=== PATIENT | female | born 1965 | race Caucasian/White ===

== ENCOUNTER 2019-08-20 12:47 | Outpatient (CLI) | payer BC, SELFPAY ==
--- NOTE | ~2019-08-20 | US_ITS ---
EXAMINATION: US pelvic complete w TV DATE: 08/20/2019 14:05 INDICATION: Postmenopausal bleeding Comparison:No prior studies for comparison. TECHNIQUE: Multiple transabdominal and endovaginal sonographic images of the pelvis performed. FINDINGS: The uterus measures 8 x 4.8 x 3.3 cm. There is a uterine fibroid measuring 1 cm greatest di mension. Incidental note is made of calcifications in the cervix. The endometrial complex measures 5 mm. The right ovary measures 1.9 x 2.1 x 1.6 cm and the left ovary not visualized. There is a 1.6 cm righ t ovarian cyst. There is no free fluid in the pelvis. There are no abnormal masses seen on either side. IMPRESSION: 1. 1 cm uterine fibroid. 2: 1.6 cm right ovarian cyst. Reviewed, dictated and finalized at location A.
== END 2019-08-20 12:48 | disposition home or self-care (01) ==
LOC: ANHIMG 12:51
PROVIDERS: PCP Internal Medicine; Visit Provider Nurse Practitioner
DX: N95.0 Postmenopausal bleeding (principal); D25.9 Leiomyoma of uterus, unspecified; N83.201 Unspecified ovarian cyst, right side
CPT/HCPCS: 76830; 76856

== ENCOUNTER 2019-09-04 06:19 | Outpatient (CLI) | payer BC, SELFPAY ==
[2019-09-04 17:05] LABS: SARS-CoV-2 RNA PCR Negative
--- NOTE | 2019-09-07 12:43 | OP_ITS ---
DATE OF PROCEDURE: 09/07/2019 PREOPERATIVE DIAGNOSIS: Postmenopausal bleeding. POSTOPERATIVE DIAGNOSIS: Postmenopausal bleeding. PROCEDURE PERFORMED: D and C, hysteroscopy. SURGEON: Simran Hernandez M.D. ANESTHESIA: MAC and local. FINDINGS: The cervix is stenotic. The uterus sounds to 7 cm. There is a midline uterine septum noted. The tubal ostia and endometrium appeared grossly normal. ESTIMATED BLOOD LOSS: 5 cc. PATHOLOGY: Endometrial curettings. DESCRIPTION OF PROCEDURE: The patient is taken to the operating room, placed under anesthesia, prepped and draped in the usual sterile fashion. The bivalved speculum is placed in the vagina. The cervix is grasped on the anterior lip with a tenaculum and injected with 1% lidocaine. The uterus is attempted to be sounded and stenosis is noted. The Os Finders are used and the cervical os is opened. The cervix is then dilated with difficulty due to stenosis to an 8 Hegar. The diagnostic hysteroscope is then placed with the above-stated findings. The hysteroscope is removed. The medium sharp curette is used to curette the endometrium until a good uterine cry is noted in all areas. All instruments are then removed. The patient is taken to Recovery in stable condition. D I MT: [facility]
== END 2019-09-04 06:20 | disposition home or self-care (01) ==
LOC: ANHCOVIDDT 06:20
PROVIDERS: PCP Internal Medicine; Visit Provider Obstetrics & Gynecology Gynecology
DX: Z01.818 Encounter for other preprocedural examination (principal); Z11.59 Encounter for screening for other viral diseases
CPT/HCPCS: 87635; C9803; U0003

== ENCOUNTER 2019-09-07 01:24 | Day surgery (SDC) | payer BC, SELFPAY ==
[2019-09-01 11:44] VITALS: BMI 28.0
--- NOTE | 2019-09-07 07:36 | P.HP_ITS ---
History of Present Illness History of Present Illness Consent: Risks, benefits, and alternatives have been discussed and questions answered. Patient agrees to proceed with procedure. Chief complaint: Post Menopausal Bleeding Narrative: Estrella Maldonado is a 54 year old female with postmenopausal bleeding and slightly thickened endometrium. Recommend to proceed with workup via hysteroscopy and D&C. Reviwed possible pathology as well as risks of infection, bleeding, perforation, and fluid imbalance. Patient agrees to proceed. [facility] Past Medical History Medical History (Updated 09/07/19 @ 07:41 by Simran Hernandez MD) Melanoma (normal spontaneous vaginal delivery) x 2 S/p breast implant removal Surgical History Surgical History (Updated 09/07/19 @ 07:40 by Simran Hernandez MD) S/P ACL surgery S/P breast implant, saline Family History Family History (Updated 05/16/16 @ 10:27 by DOCTOR UNKNOWN) Mother Family history of migraine headaches Hypertension Family history of arthritis Sibling Family history of migraine headaches Family history of arthritis Father Hypertension Grandparent Family history of rheumatoid arthritis Family history of congestive heart failure Other Carcinoma of colon Family history of malignant neoplasm of breast Social History Social History Smoking status: Former smoker Smoking end date: 04/22/89 Alcohol intake: current Meds Home Medications and Allergies Home Medications Medication Instructions Recorded Confirmed Type diclofenac sodium 75 mg PO DAILY 09/01/19 09/01/19 History ergocalciferol (vitamin D2) 50,000 unit PO DAILY 09/01/19 09/01/19 History levothyroxine 25 mcg PO DAILY 09/01/19 09/01/19 History loratadine [Claritin] 10 mg PO DAILY 09/01/19 09/01/19 History pseudoephedrine HCl [Sudafed] 30 mg PO Q4-6H PRN 09/01/19 09/01/19 History vitamin B complex [B 1 tablet PO DAILY 09/01/19 09/01/19 History Complex-Vitamin B12] Allergies Allergy/AdvReac Type Severity Reaction Status Date / Time apple Allergy Severe Swelling Verified 09/01/19 10:56 of Lip/Tongue/Throat hazelnut Allergy Severe Swelling Verified 09/01/19 10:56 of Lip/Tongue/Throat potato Allergy Severe Swelling Verified 09/01/19 10:56 of Lip/Tongue/Throat amoxicillin Allergy Intermediate Abdominal Verified 09/01/19 10:56 Pain Exam Const: General: healthy appearing and alert Orientation/consciousness: patient oriented x3 GI: GI Palp: Yes Soft to palpation, No Tenderness to palpation present (GI) and No Palpable mass present : External Female Exam: normal external appearance Speculum Exam - Vagina: normal appearance of the vagina and normal vaginal discharge Speculum Exam - Cervix: normal appearance of the cervix Bimanual exam- vagina & uterus: uterine size normal and consistency normal Bimanual Exam- Adnexa, other: normal adnexae and No adnexal tenderness Neuro: General: patient oriented x3 Assessment and Plan Assessment and plan (1) History of postmenopausal bleeding: Code(s): Z87.42 - Personal history of other diseases of the female genital tract Status: Acute Assessment and Plan: Plan to proceed with D&C hysteroscopy
[2019-09-07 08:40] VITALS: BP 111/72; PULSE 67; RESP 20; TEMP 36.2; O2SAT 98
--- NOTE | 2019-09-07 09:02 | WPDANESEPPF ---
Anes - Initial Pre Proc Eval Procedure: Operation Date: 09/07/19 10:45 Proposed Procedures p Hysteroscopy, Dilation and Curettage - Simran Hernandez MD Date/Time: 09/07/19 09:02 Surgeon: Simran Hernandez MD Pre Op Diagnosis: Post Menopausal Bleeding Patient Data Age: 54 Gender: F Height: 5 ft 6 in Weight: 78 kg Allergies Allergy/AdvReac Type Severity Reaction Status Date / Time amoxicillin [From Augmentin] Allergy Severe Swelling Verified 09/07/19 08:51 of Lip/Tongue/Throat apple Allergy Severe Swelling Verified 09/07/19 08:50 of Lip/Tongue/Throat clavulanic acid Allergy Severe Swelling Verified 09/07/19 08:51 [From Augmentin] of Lip/Tongue/Throat hazelnut Allergy Severe Swelling Verified 09/07/19 08:50 of Lip/Tongue/Throat potato Allergy Severe Swelling Verified 09/07/19 08:50 of Lip/Tongue/Throat Home Medications Medication Instructions Recorded Confirmed Type diclofenac sodium 75 mg PO DAILY 09/01/19 09/07/19 History ergocalciferol (vitamin D2) 50,000 unit PO DAILY 09/01/19 09/07/19 History levothyroxine 25 mcg PO DAILY 09/01/19 09/07/19 History loratadine [Claritin] 10 mg PO DAILY 09/01/19 09/07/19 History pseudoephedrine HCl [Sudafed] 30 mg PO Q4-6H PRN 09/01/19 09/07/19 History vitamin B complex [B 1 tablet PO DAILY 09/01/19 09/07/19 History Complex-Vitamin B12] Patient hx anesthesia problems: none Family hx anesthesia problems: none PMFSH Past Medical History Medical History Melanoma (normal spontaneous vaginal delivery) x 2 S/p breast implant removal Surgical History Surgical History S/P ACL surgery S/P breast implant, saline Family History Family History Mother Family history of migraine headaches Hypertension Family history of arthritis Sibling Family history of migraine headaches Family history of arthritis Father Hypertension Grandparent Family history of rheumatoid arthritis Family history of congestive heart failure Other Carcinoma of colon Family history of malignant neoplasm of breast Social History Social History Smoking status: Former smoker Smoking end date: 04/22/89 Alcohol intake: current Anes - Eval Final PreProcedure Day of Procedure 09/07/19 09:02 Patient weight: overweight Heart: regular rate and rhythm Lungs: clear to auscultation Airway: Mallampati scale class II Neurological: alert and oriented Last oral intake: >/= 8 hours ASA classification: III Emergent: no Anesthetic plan: proceed Anesthesia type and monitoring: general GIVS and standard monitoring Informed Consent: The patient's anesthetic plan and its attendant risks and benefits were discussed with the patient/family/POA. Questions were solicited and answers provided to the satisfaction of the patient/family/POA.
[2019-09-07] MEDS: LACTATED RINGERS 1,000 ML 30 ML IV CONT (09:26)
--- NOTE | 2019-09-07 10:53 | PM.OP ---
Procedure Note - Brief Procedure Note - Brief Date of procedure: 09/07/19 Pre-op diagnosis: Post Menopausal Bleeding Post-op diagnosis: same Procedure performed: D&C hysteroscopy Anesthesia: MAC and local Surgeon: Simran Hernandez MD Estimated blood loss (mL): 5 Drains: No Packing: No Pathology: yes (endometrial) Complications: No immediate complications Condition: stable Disposition: PACU Findings: uterine septum noted; normal appearing endometrium
--- NOTE | 2019-09-07 10:57 | OP_ITS ---
This report was moved to the correct visit, [id number] on 09/08/2019. Original report was signed by Dr. Simran Hernandez on 09/04/2019 at 1529. DATE OF PROCEDURE: 09/07/2019 PREOPERATIVE DIAGNOSIS: Postmenopausal bleeding. POSTOPERATIVE DIAGNOSIS: Postmenopausal bleeding. PROCEDURE PERFORMED: D and C, hysteroscopy. SURGEON: Simran Hernandez M.D. ANESTHESIA: MAC and local. FINDINGS: The cervix is stenotic. The uterus sounds to 7 cm. There is a midline uterine septum noted. The tubal ostia and endometrium appeared grossly normal. ESTIMATED BLOOD LOSS: 5 cc. PATHOLOGY: Endometrial curettings. DESCRIPTION OF PROCEDURE: The patient is taken to the operating room, placed under anesthesia, prepped and draped in the usual sterile fashion. The bivalved speculum is placed in the vagina. The cervix is grasped on the anterior lip with a tenaculum and injected with 1% lidocaine. The uterus is attempted to be sounded and stenosis is noted. The Os Finders are used and the cervical os is opened. The cervix is then dilated with difficulty due to stenosis to an 8 Hegar. The diagnostic hysteroscope is then placed with the above-stated findings. The hysteroscope is removed. The medium sharp curette is used to curette the endometrium until a good uterine cry is noted in all areas. All instruments are then removed. The patient is taken to Recovery in stable condition. Aaron I MT: [facility] Dictated By: Simran Hernandez MD 09/07/19 1057 Transcribed Date/Time: 09/07/19 1236 Signed By: Simran Hernandez MD 09/07/19 1529 [facility]
[2019-09-07 11:00] VITALS: BP 109/85; PULSE 69; RESP 20; O2SAT 96
[2019-09-07 11:20] VITALS: BP 129/91; PULSE 58; RESP 14; O2SAT 99
--- NOTE | 2019-09-07 11:29 | SUR.PHASEII ---
1100 called to update spouse on pt condition/status
[2019-09-07 11:38] VITALS: BP 125/98; PULSE 60; RESP 14
== END 2019-09-07 11:54 | disposition home or self-care (01) ==
PROVIDERS: PCP Internal Medicine; Visit Provider Obstetrics & Gynecology Gynecology
PROC: 0U5B8ZZ Destruction of Endometrium, Via Natural or Artificial Opening Endoscopic (ICD-10-PCS; CPT 58563; principal; 2019-09-07 10:45)
DX: N95.0 Postmenopausal bleeding (principal)
CPT/HCPCS: 58558; 88305; A9270; J0131; J1100; J2250; J2704; J3010; J7030; J7120